=== PATIENT | male | born 1965 | race Caucasian/White ===

== ENCOUNTER 2020-06-11 11:43 | Inpatient (IN) | payer BC ==
[2020-06-11 13:47] VITALS: BMI 24.5
[2020-06-11] MEDS ORDERED: Dextrose 50% Abboject 50 ML SYRINGE SLOW IVP PRN (14:46)
[2020-06-11] MEDS ORDERED: Dextrose 5% in Water 1,000 ML IV PRN (14:46)
[2020-06-11 15:39] LABS: #Basophils 0.1 thou/uL (0.0-0.2); #Eosinphils 0.1 thou/uL (0.0-0.7); #Monocytes 0.9 thou/uL (0.11-0.59); #Neutrophils 4.2 thou/uL (1.40-6.50); %Basophils 0.7 % (0.0-1.0); %Eosinophils 1.1 % (0.0-10.0); %Monocytes 10.7 % (0.0-10.0); %Neutrophils 51.6 % (42.0-75.0); Hemoglobin 14.9 g/dL (14.0-18.0); Mean Corpuscular HGB CONC 32.8 g/dL (32.0-36.0); Mean Corpuscular Hemoglobin 31.3 pg (27.0-31.0); Mean Corpuscular Volume 95.5 fL (78.0-98.0); Mean Platelet Volume 7.1 fL (7.4-10.4); Platelet Count 337 thou/uL (130-400); RBC Distribution Width 11.6 % (11.5-14.5); Red Blood Cell (RBC) Count 4.77 mill/uL (4.70-6.10); White Blood Cell (WBC) Count 8.2 thou/uL (4.8-10.8)
[2020-06-11 16:01] LABS: ALT (SGPT) 9 U/L (8-55); AST (SGOT) 14 U/L (5-34); Alkaline Phosphatase 83 U/L (40-110); Anion Gap 15 mmol/L (10-20); BUN (Urea Nitrogen) 10 mg/dL (8.4-25.7); Bilirubin, Total 0.3 mg/dL (0.2-1.2); Calc. Creatinine Clearance 104 mL/min (70-130); Calcium 9.3 mg/dL (7.8-10.44); Carbon Dioxide 26 mmol/L (22-29); Chloride 101 mmol/L (98-107); Globulin 3.3 g/dL (2.4-3.5); Glucose 112 mg/dL (70-105); Potassium 4.1 mmol/L (3.5-5.1); Protein, Total 7.3 g/dL (6.0-8.3); Sodium 138 mmol/L (136-145)
[2020-06-11] MEDS ORDERED: hydrALAZINE 20 MG/ML VIAL SLOW IVP PRN (16:09)
[2020-06-11] MEDS: VANCOMYCIN 1.75 GM/350 ML BAG 1.75 GM in Premix Bag 1 BAG IVPB SCH (17:45)
[2020-06-11] MEDS ORDERED: Vancomycin 1 GM in Premix Bag 1 BAG IVPB SCH (21:00)
[2020-06-12 01:53] LABS: SARS-CoV-2 PCR by NAA Not Detected (NotDetected)
[2020-06-12] MEDS: VANCOMYCIN 1.75 GM/350 ML BAG 1.75 GM in Premix Bag 1 BAG IVPB SCH ×2 (05:18→17:23)
[2020-06-12 06:11] LABS: #Basophils 0.1 thou/uL (0.0-0.2); #Eosinphils 0.1 thou/uL (0.0-0.7); #Monocytes 0.8 thou/uL (0.11-0.59); #Neutrophils 3.5 thou/uL (1.40-6.50); %Eosinophils 1.6 % (0.0-10.0); %Lymphocytes 40.4 % (21.0-51.0); %Monocytes 10.3 % (0.0-10.0); %Neutrophils 46.7 % (42.0-75.0); Hemoglobin 14.8 g/dL (14.0-18.0); Mean Corpuscular HGB CONC 31.9 g/dL (32.0-36.0); Mean Corpuscular Hemoglobin 30.4 pg (27.0-31.0); Mean Corpuscular Volume 95.2 fL (78.0-98.0); Mean Platelet Volume 6.9 fL (7.4-10.4); Platelet Count 309 thou/uL (130-400); RBC Distribution Width 11.4 % (11.5-14.5); Red Blood Cell (RBC) Count 4.86 mill/uL (4.70-6.10); White Blood Cell (WBC) Count 7.4 thou/uL (4.8-10.8)
[2020-06-12 06:29] LABS: Anion Gap 14 mmol/L (10-20); BUN (Urea Nitrogen) 10 mg/dL (8.4-25.7); Calc. Creatinine Clearance 132 mL/min (70-130); Carbon Dioxide 24 mmol/L (22-29); Chloride 101 mmol/L (98-107); Glucose 114 mg/dL (70-105); Potassium 3.9 mmol/L (3.5-5.1); Sodium 135 mmol/L (136-145)
[2020-06-12] MEDS: Cefepime 2 GM in Sodium Chloride 0.9% 100 ML IVPB SCH ×2 (08:12→20:40)
[2020-06-12] MEDS: HumaLOG 300 UNITS/3 ML VIAL SC PRN (17:23)
[2020-06-13 05:07] LABS: #Basophils 0.1 thou/uL (0.0-0.2); #Eosinphils 0.2 thou/uL (0.0-0.7); #Lymphocytes 3.1 thou/uL (1.20-3.40); #Monocytes 0.8 thou/uL (0.11-0.59); #Neutrophils 4.4 thou/uL (1.40-6.50); %Basophils 1.3 % (0.0-1.0); %Eosinophils 1.9 % (0.0-10.0); %Lymphocytes 36.1 % (21.0-51.0); %Monocytes 9.2 % (0.0-10.0); %Neutrophils 51.4 % (42.0-75.0); Hemoglobin 15.2 g/dL (14.0-18.0); Mean Corpuscular HGB CONC 31.3 g/dL (32.0-36.0); Mean Corpuscular Hemoglobin 29.7 pg (27.0-31.0); Mean Platelet Volume 6.9 fL (7.4-10.4); Platelet Count 360 thou/uL (130-400); RBC Distribution Width 11.5 % (11.5-14.5); Red Blood Cell (RBC) Count 5.11 mill/uL (4.70-6.10); White Blood Cell (WBC) Count 8.6 thou/uL (4.8-10.8)
[2020-06-13 05:28] LABS: Vancomycin, Trough 15.3 ug/mL
[2020-06-13 05:30] LABS: Anion Gap 14 mmol/L (10-20); BUN (Urea Nitrogen) 13 mg/dL (8.4-25.7); Calc. Creatinine Clearance 108 mL/min (70-130); Calcium 9.1 mg/dL (7.8-10.44); Carbon Dioxide 28 mmol/L (22-29); Chloride 99 mmol/L (98-107); Glucose 161 mg/dL (70-105); Sodium 137 mmol/L (136-145)
[2020-06-13] MEDS: VANCOMYCIN 1.75 GM/350 ML BAG 1.75 GM in Premix Bag 1 BAG IVPB SCH ×2 (05:53→17:31)
[2020-06-13] MEDS: Cefepime 2 GM in Sodium Chloride 0.9% 100 ML IVPB SCH ×2 (08:49→21:47)
[2020-06-13] MEDS: HumaLOG 300 UNITS/3 ML VIAL SC PRN ×3 (11:32→21:48)
[2020-06-14 06:06] LABS: #Basophils 0.1 thou/uL (0.0-0.2); #Eosinphils 0.2 thou/uL (0.0-0.7); #Monocytes 0.7 thou/uL (0.11-0.59); #Neutrophils 3.5 thou/uL (1.40-6.50); %Basophils 1.4 % (0.0-1.0); %Eosinophils 3.3 % (0.0-10.0); %Lymphocytes 39.8 % (21.0-51.0); %Monocytes 9.3 % (0.0-10.0); %Neutrophils 46.3 % (42.0-75.0); Hemoglobin 14.7 g/dL (14.0-18.0); Mean Corpuscular HGB CONC 31.1 g/dL (32.0-36.0); Mean Corpuscular Hemoglobin 29.6 pg (27.0-31.0); Platelet Count 337 thou/uL (130-400); RBC Distribution Width 11.5 % (11.5-14.5); Red Blood Cell (RBC) Count 4.97 mill/uL (4.70-6.10); White Blood Cell (WBC) Count 7.6 thou/uL (4.8-10.8)
[2020-06-14] MEDS: HumaLOG 300 UNITS/3 ML VIAL SC PRN (06:14)
[2020-06-14] MEDS: VANCOMYCIN 1.75 GM/350 ML BAG 1.75 GM in Premix Bag 1 BAG IVPB SCH ×2 (06:14→17:14)
[2020-06-14 06:35] LABS: Anion Gap 13 mmol/L (10-20); BUN (Urea Nitrogen) 11 mg/dL (8.4-25.7); Calc. Creatinine Clearance 142 mL/min (70-130); Calcium 8.9 mg/dL (7.8-10.44); Carbon Dioxide 25 mmol/L (22-29); Chloride 101 mmol/L (98-107); Glucose 172 mg/dL (70-105); Potassium 3.8 mmol/L (3.5-5.1); Sodium 135 mmol/L (136-145)
[2020-06-14] MEDS: Cefepime 2 GM in Sodium Chloride 0.9% 100 ML IVPB SCH ×2 (08:50→21:32)
[2020-06-14] MEDS: metFORMIN 850 MG TAB PO SCH (08:50)
[2020-06-15 05:56] LABS: Vancomycin, Trough 13.3 ug/mL
[2020-06-15] MEDS: VANCOMYCIN 1.75 GM/350 ML BAG 1.75 GM in Premix Bag 1 BAG IVPB SCH (06:26)
[2020-06-15] MEDS ORDERED: VANCOMYCIN 1.25 GM/250 ML BAG 1.25 GM in Premix Bag 1 BAG IVPB SCH ×2 (06:45→14:00)
[2020-06-15] MEDS ORDERED: Midazolam HCl 2 mg/2 ml Vial ONE (08:21)
[2020-06-15] MEDS ORDERED: Fentanyl 100 MCG/2 ML VIAL ONE ×2 (08:21→09:18)
[2020-06-15] MEDS ORDERED: Lidocaine 1% PF 5 ML VIAL ONE (09:21)
[2020-06-15] MEDS ORDERED: PROPOFOL 200 MG/20 ML VIAL ONE (09:22)
[2020-06-15] MEDS ORDERED: Ondansetron HCl/PF 4 MG/2 ML Vial IVP PRN (09:41)
[2020-06-15] MEDS ORDERED: Promethazine HCl 25 MG/ML VIAL SLOW IVP PRN (09:41)
[2020-06-15] MEDS ORDERED: Promethazine HCl 25 MG/ML VIAL IM PRN (09:41)
[2020-06-15] MEDS ORDERED: EPINEPHrine 1 MG/ML AMP ONE (09:43)
[2020-06-15] MEDS ORDERED: Bupivacaine PF 0.5% 30 ML VIAL ONE (09:43)
[2020-06-15] MEDS ORDERED: Acetaminophen 500 MG TAB PO PRN (10:05)
[2020-06-15] MEDS ORDERED: traMADol HCl 50 MG TAB PO PRN (10:05)
[2020-06-15] MEDS: metFORMIN 850 MG TAB PO SCH (10:38)
[2020-06-15] MEDS: Saccharomyces boulardii 250 MG CAP PO SCH (10:38)
[2020-06-15] MEDS: Cefepime 2 GM in Sodium Chloride 0.9% 100 ML IVPB SCH (10:39)
[2020-06-15] MEDS ORDERED: Ciprofloxacin 500 MG TAB PO SCH (20:00)
[2020-06-15] MEDS: Amoxicillin/Potassium Clav 500 MG TAB PO SCH (21:32)
[2020-06-15] MEDS: Sulfameth/Trimethoprim DS 800-160mg TAB PO SCH (21:32)
[2020-06-15] MEDS: HumaLOG 300 UNITS/3 ML VIAL SC PRN (21:39)
[2020-06-16 07:46] VITALS: BP 134/91; TEMP 97.3
[2020-06-16] MEDS: Saccharomyces boulardii 250 MG CAP PO SCH (08:28)
[2020-06-16] MEDS: Sulfameth/Trimethoprim DS 800-160mg TAB PO SCH (08:28)
[2020-06-16] MEDS: metFORMIN 850 MG TAB PO SCH (08:29)
[2020-06-16] MEDS: Amoxicillin/Potassium Clav 500 MG TAB PO SCH (08:29)
== END 2020-06-16 11:23 | disposition home or self-care (01) | DRG 616 ==
LOC: T4-A 11:47
PROVIDERS: ADMIT Internal Medicine; ATTEND Internal Medicine
PROC: 0Y6T0Z1 Detachment at Right 3rd Toe, High, Open Approach (ICD-10-PCS; principal; 2020-06-15)
DX: E11.69 Type 2 diabetes mellitus with other specified complication (principal); E43 Unspecified severe protein-calorie malnutrition; E87.1 Hypo-osmolality and hyponatremia; M86.8X7 Other osteomyelitis, ankle and foot; L03.115 Cellulitis of right lower limb; Z20.822 Contact with and (suspected) exposure to COVID-19; Z66 Do not resuscitate; I10 Essential (primary) hypertension; R62.7 Adult failure to thrive; E11.621 Type 2 diabetes mellitus with foot ulcer; L97.519 Non-pressure chronic ulcer of other part of right foot with unspecified severity; M10.9 Gout, unspecified; E11.40 Type 2 diabetes mellitus with diabetic neuropathy, unspecified; E11.51 Type 2 diabetes mellitus with diabetic peripheral angiopathy without gangrene; I70.201 Unspecified atherosclerosis of native arteries of extremities, right leg; Z68.24 Body mass index [BMI] 24.0-24.9, adult; Z88.1 Allergy status to other antibiotic agents; Z79.899 Other long term (current) drug therapy; Z79.84 Long term (current) use of oral hypoglycemic drugs; Z87.891 Personal history of nicotine dependence; Z82.49 Family history of ischemic heart disease and other diseases of the circulatory system
CPT/HCPCS: 36415; 36416; 80048; 80053; 80202; 85025; 85652; 86140; 87040; 87635; 88305; 88311; 93923; J0171; J0692; J1815; J2250; J2704; J3010; J3370; J3490; S0020; U0003; U0005

== ENCOUNTER 2024-01-29 12:23 | Emergency (ER) | payer BC ==
[2024-01-29 13:16] LABS: #Basophils 0.05 10x3/uL (0.0-0.2); #Eosinophils Less than 0.03 10x3/uL (0.0-0.7); %Basophils 0.3 % (0.0-1.0); %Lymphocytes 6.8 % (21.0-51.0); %Monocytes 8.5 % (0.0-10.0); %Neutrophils 83.9 % (42.0-75.0); Hemoglobin 17.5 g/dL (14.0-18.0); Mean Corpuscular HGB CONC 33.7 g/dL (32.0-36.0); Mean Corpuscular Hemoglobin 30.5 pg (27.0-31.0); Mean Corpuscular Volume 90.8 fL (78.0-98.0); Mean Platelet Volume 8.8 fL (7.4-10.4); Platelet Count 342 10x3/uL (130-400); RBC Distribution Width 13.1 % (11.5-14.5); Red Blood Cell (RBC) Count 5.73 mill/uL (4.70-6.10)
[2024-01-29 13:51] LABS: ALT (SGPT) 29 U/L (8-55); AST (SGOT) 24 U/L (5-34); Albumin 3.4 g/dL (3.5-5.0); Alkaline Phosphatase 84 U/L (40-110); Anion Gap 23 mmol/L (10-20); BUN (Urea Nitrogen) 10 mg/dL (8.4-25.7); Bilirubin, Total 0.6 mg/dL (0.2-1.2); Calc. Creatinine Clearance 0 mL/min (70-130); Calcium 9.4 mg/dL (7.8-10.44); Carbon Dioxide 12 mmol/L (22-29); Chloride 99 mmol/L (98-107); Estimated GFR 82; Glucose 143 mg/dL (70-105); Potassium 4.3 mmol/L (3.5-5.1); Protein, Total 8.4 g/dL (6.0-8.3); Sodium 130 mmol/L (136-145)
[2024-01-29] MEDS ORDERED: Dexamethasone 10 MG/ML VIAL ONE ×2 (14:46→15:04)
[2024-01-29] MEDS ORDERED: Ketorolac Tromethamine 30 MG (1 mL) VIAL ONE (14:46)
[2024-01-29] MEDS ORDERED: Morphine 4 MG/ML VIAL ONE ×2 (14:46→15:03)
== END 2024-01-29 16:41 | disposition home or self-care (01) ==
LOC: ERS 12:23
DX: M54.2 Cervicalgia (principal); M47.9 Spondylosis, unspecified; E78.00 Pure hypercholesterolemia, unspecified; E11.9 Type 2 diabetes mellitus without complications; I10 Essential (primary) hypertension; Z79.82 Long term (current) use of aspirin; Z79.84 Long term (current) use of oral hypoglycemic drugs; Z79.899 Other long term (current) drug therapy
CPT/HCPCS: 80053; 83605; 85025; 87040; 87077; 87149; 96374; 96375; J1100; J1885; J2272

== ENCOUNTER 2024-02-01 08:57 | Inpatient (IN) | payer BC ==
[2024-02-01] MEDS ORDERED: Iopamidol-370 76% 500 ML MDV (1 ML CHARGE) ONE (09:43)
[2024-02-01] MEDS ORDERED: Morphine 4 MG/ML VIAL ONE (10:01)
[2024-02-01] MEDS ORDERED: Metoclopramide HCl 10 MG (2 mL) VIAL ONE (10:01)
[2024-02-01] MEDS ORDERED: methylPREDNISolone Sod Succ/PF 125 MG/2 ML VIAL ONE (10:02)
[2024-02-01 10:21] LABS: #Basophils 0.07 10x3/uL (0.0-0.2); #Eosinophils Less than 0.03 10x3/uL (0.0-0.7); %Basophils 0.4 % (0.0-1.0); %Eosinophils 0.1 % (0.0-10.0); %Monocytes 10.3 % (0.0-10.0); %Neutrophils 80.5 % (42.0-75.0); Hematocrit 48.4 % (42.0-52.0); Hemoglobin 16.9 g/dL (14.0-18.0); Mean Corpuscular HGB CONC 34.9 g/dL (32.0-36.0); Mean Corpuscular Hemoglobin 30.2 pg (27.0-31.0); Mean Corpuscular Volume 86.4 fL (78.0-98.0); Mean Platelet Volume 8.8 fL (7.4-10.4); Platelet Count 494 10x3/uL (130-400)
[2024-02-01 10:33] LABS: ALT (SGPT) 21 U/L (8-55); AST (SGOT) 20 U/L (5-34); Albumin 3.3 g/dL (3.5-5.0); Alkaline Phosphatase 79 U/L (40-110); Anion Gap 24 mmol/L (10-20); BUN (Urea Nitrogen) 14 mg/dL (8.4-25.7); Bilirubin, Total 1.6 mg/dL (0.2-1.2); Calc. Creatinine Clearance 0 mL/min (70-130); Calcium 9.5 mg/dL (7.8-10.44); Carbon Dioxide 22 mmol/L (22-29); Chloride 95 mmol/L (98-107); Estimated GFR 101; Globulin 4.8 g/dL (2.4-3.5); Glucose 179 mg/dL (70-105); Potassium 3.8 mmol/L (3.5-5.1); Protein, Total 8.1 g/dL (6.0-8.3); Sodium 137 mmol/L (136-145)
[2024-02-01] MEDS ORDERED: cefTRIAXone (ROCEPHIN) 2 GM VIAL ONE (10:49)
[2024-02-01] MEDS ORDERED: Sodium Chloride 0.9% 100 ML ONE ×2 (10:49→14:08)
[2024-02-01 13:35] LABS: CSF, Glucose 95 mg/dl (40-70); CSF, Protein 25.1 mg/dL (15-40)
[2024-02-01 13:47] LABS: Lactic Acid 1.07 mmol/L (0.5-2.2)
[2024-02-01 13:59] LABS: Color Of CSF Supernatant COLORLESS (Colorless); Tube # 2; Unspun CSF Color COLORLESS (Colorless)
[2024-02-01 14:07] LABS: CSF Source CSF; Clarity Clear (Clear); Tube # 1; Tube # 4
[2024-02-01] MEDS ORDERED: Vancomycin (BATCH) 2 GM/500 ML BAG ONE (14:07)
[2024-02-01] MEDS ORDERED: Piperacillin/Tazobactam 4.5 GM VIAL ONE (14:08)
[2024-02-01] MEDS ORDERED: Glucagon 1 MG/ML KIT IM PRN (14:50)
[2024-02-01] MEDS ORDERED: Dextrose 50% Abboject 50 ML SYRINGE SLOW IVP PRN (14:50)
[2024-02-01] MEDS ORDERED: Dextrose 5% in Water 1,000 ML IV PRN (14:50)
[2024-02-01] MEDS ORDERED: Ondansetron PF 4 MG/2 ML Vial IVP PRN (14:52)
[2024-02-01 18:43] VITALS: BMI 22.8
[2024-02-01] MEDS: Acetaminophen 325 MG TAB PO PRN (20:27)
[2024-02-01] MEDS: Cefepime 1 GM in Sodium Chloride 0.9% 100 ML IVPB SCH (20:30)
[2024-02-01] MEDS ORDERED: Vancomycin 1 GM in Premix 1 BAG IVPB SCH (21:00)
[2024-02-01] MEDS: metroNIDAZOLE 500 MG in Premix 1 BAG IVPB SCH (22:54)
[2024-02-02] MEDS: Vancomycin (BATCH) 1.5 GM in Premix 1 BAG IVPB SCH (01:00)
[2024-02-02] MEDS: Insulin Lispro 100 UNIT/ML 10 ML VIAL SC PRN (01:07)
[2024-02-02 03:59] LABS: #Basophils 0.08 10x3/uL (0.0-0.2); #Eosinophils Less than 0.03 10x3/uL (0.0-0.7); %Basophils 0.3 % (0.0-1.0); %Lymphocytes 8.6 % (21.0-51.0); %Monocytes 9.8 % (0.0-10.0); Hematocrit 44.5 % (42.0-52.0); Hemoglobin 15.3 g/dL (14.0-18.0); Mean Corpuscular HGB CONC 34.4 g/dL (32.0-36.0); Mean Corpuscular Hemoglobin 30.2 pg (27.0-31.0); Mean Corpuscular Volume 87.9 fL (78.0-98.0); Mean Platelet Volume 8.9 fL (7.4-10.4); Platelet Count 465 10x3/uL (130-400); RBC Distribution Width 13.3 % (11.5-14.5); Red Blood Cell (RBC) Count 5.06 mill/uL (4.70-6.10)
[2024-02-02 04:15] LABS: Vancomycin, Random 30.5 ug/mL (See Comment)
[2024-02-02 04:26] LABS: Anion Gap 15 mmol/L (10-20); BUN (Urea Nitrogen) 18 mg/dL (8.4-25.7); Calc. Creatinine Clearance 127 mL/min (70-130); Calcium 8.9 mg/dL (7.8-10.44); Carbon Dioxide 23 mmol/L (22-29); Chloride 102 mmol/L (98-107); Estimated GFR 105; Glucose 173 mg/dL (70-105); Potassium 4.1 mmol/L (3.5-5.1); Sodium 136 mmol/L (136-145)
[2024-02-02] MEDS: CEFAZOLIN 2 GM in Sodium Chloride 0.9% 100 ML IVPB SCH (08:22)
[2024-02-02] MEDS: Enoxaparin 40 MG (0.4 mL) SYRINGE SC SCH (08:32)
[2024-02-02] MEDS: HYDROcodone/Acetaminophen 7.5/325 mg Tablet PO PRN (12:45)
[2024-02-02] MEDS: Fioricet 325/50/40 mg Tablet PO PRN (15:08)
[2024-02-03] MEDS ORDERED: Ketorolac Tromethamine 30 MG (1 mL) VIAL ONE (09:20)
[2024-02-03] MEDS ORDERED: PROPOFOL 20 ML ONE (09:56)
[2024-02-03] MEDS ORDERED: Lidocaine 1% PF 5 ML VIAL ONE (09:56)
[2024-02-03] MEDS ORDERED: fentaNYL PF 100 MCG/2 ML SYRINGE ONE (10:02)
[2024-02-03] MEDS ORDERED: Bupivacaine PF 0.5% 30 ML VIAL ONE (10:11)
[2024-02-03] MEDS ORDERED: Ondansetron PF 4 MG/2 ML Vial ONE (10:13)
[2024-02-03 15:05] VITALS: BMI 22.8
[2024-02-03] MEDS: SUMAtriptan Succinate 6 MG/0.5 ML VIAL SC PRN (18:44)
[2024-02-03] MEDS: Acetaminophen 500 MG TAB PO PRN (22:56)
[2024-02-04 05:41] LABS: #Basophils 0.07 10x3/uL (0.0-0.2); %Basophils 0.4 % (0.0-1.0); %Eosinophils 0.4 % (0.0-10.0); %Lymphocytes 15.7 % (21.0-51.0); %Monocytes 9.8 % (0.0-10.0); %Neutrophils 72.6 % (42.0-75.0); Hematocrit 42.4 % (42.0-52.0); Hemoglobin 14.7 g/dL (14.0-18.0); Mean Corpuscular HGB CONC 34.7 g/dL (32.0-36.0); Mean Corpuscular Hemoglobin 29.9 pg (27.0-31.0); Mean Corpuscular Volume 86.4 fL (78.0-98.0); Mean Platelet Volume 8.9 fL (7.4-10.4); Platelet Count 492 10x3/uL (130-400); RBC Distribution Width 13.2 % (11.5-14.5); Red Blood Cell (RBC) Count 4.91 mill/uL (4.70-6.10)
[2024-02-04] MEDS: Sodium Chloride 0.9% 100 ML ONE (08:31)
[2024-02-04] MEDS: Colchicine 0.6 MG TAB PO SCH ×2 (14:49→20:39)
[2024-02-05 05:58] LABS: #Basophils 0.06 10x3/uL (0.0-0.2); %Basophils 0.4 % (0.0-1.0); %Eosinophils 0.5 % (0.0-10.0); %Lymphocytes 18.8 % (21.0-51.0); %Monocytes 11.9 % (0.0-10.0); Hematocrit 42.1 % (42.0-52.0); Hemoglobin 14.7 g/dL (14.0-18.0); Mean Corpuscular HGB CONC 34.9 g/dL (32.0-36.0); Mean Corpuscular Hemoglobin 30.2 pg (27.0-31.0); Mean Corpuscular Volume 86.4 fL (78.0-98.0); Platelet Count 510 10x3/uL (130-400); RBC Distribution Width 13.2 % (11.5-14.5); Red Blood Cell (RBC) Count 4.87 mill/uL (4.70-6.10)
[2024-02-06 05:49] LABS: #Basophils 0.04 10x3/uL (0.0-0.2); %Basophils 0.2 % (0.0-1.0); %Eosinophils 0.2 % (0.0-10.0); %Lymphocytes 14.2 % (21.0-51.0); %Monocytes 9.7 % (0.0-10.0); %Neutrophils 74.6 % (42.0-75.0); Hematocrit 42.1 % (42.0-52.0); Hemoglobin 14.6 g/dL (14.0-18.0); Mean Corpuscular HGB CONC 34.7 g/dL (32.0-36.0); Mean Corpuscular Hemoglobin 30.2 pg (27.0-31.0); Mean Corpuscular Volume 87.2 fL (78.0-98.0); Platelet Count 490 10x3/uL (130-400); Red Blood Cell (RBC) Count 4.83 mill/uL (4.70-6.10)
[2024-02-06] MEDS: Pantoprazole DR 40 MG TAB PO SCH (12:45)
[2024-02-06] MEDS: metFORMIN 850 MG TAB PO SCH (20:24)
[2024-02-07 04:56] LABS: #Basophils 0.06 10x3/uL (0.0-0.2); %Basophils 0.5 % (0.0-1.0); %Eosinophils 0.8 % (0.0-10.0); %Lymphocytes 18.7 % (21.0-51.0); %Monocytes 12.7 % (0.0-10.0); %Neutrophils 66.5 % (42.0-75.0); Hematocrit 42.1 % (42.0-52.0); Hemoglobin 14.3 g/dL (14.0-18.0); Mean Corpuscular Volume 88.3 fL (78.0-98.0); Platelet Count 497 10x3/uL (130-400); RBC Distribution Width 13.2 % (11.5-14.5); Red Blood Cell (RBC) Count 4.77 mill/uL (4.70-6.10)
[2024-02-07] MEDS ORDERED: Sodium Bicarbonate 2.5 MEQ/5 ML SDV ONE (08:26)
[2024-02-07] MEDS ORDERED: Lidocaine 1% PF 5 ML VIAL ONE (08:26)
[2024-02-07] MEDS ORDERED: Pantoprazole DR 40 MG TAB PO SCH (09:00)
[2024-02-07] MEDS: Pantoprazole DR 40 MG TAB PO SCH (09:52)
[2024-02-07] MEDS: Empagliflozin 25 MG TAB PO SCH (09:52)
[2024-02-07] MEDS: Aspirin Chewable 81 MG TAB PO SCH (09:52)
[2024-02-07] MEDS: Atorvastatin Calcium 10 MG TAB PO SCH (09:52)
[2024-02-07] MEDS: glipiZIDE 5 MG TAB PO SCH (09:52)
[2024-02-07] MEDS ORDERED: Docusate 100 MG CAP PO PRN (13:40)
[2024-02-07] MEDS ORDERED: Polyethylene Glycol 3350 17 GM Packet PO PRN (13:40)
[2024-02-07] MEDS: diphenhydrAMINE 50 MG/ML VIAL IVP SCH (15:48)
[2024-02-08 07:04] LABS: #Basophils 0.08 10x3/uL (0.0-0.2); %Basophils 0.5 % (0.0-1.0); %Eosinophils 0.4 % (0.0-10.0); %Lymphocytes 14.4 % (21.0-51.0); %Monocytes 10.8 % (0.0-10.0); %Neutrophils 73.1 % (42.0-75.0); Hematocrit 41.3 % (42.0-52.0); Hemoglobin 14.2 g/dL (14.0-18.0); Mean Corpuscular HGB CONC 34.4 g/dL (32.0-36.0); Mean Corpuscular Hemoglobin 30.5 pg (27.0-31.0); Mean Corpuscular Volume 88.8 fL (78.0-98.0); Mean Platelet Volume 8.6 fL (7.4-10.4); Platelet Count 541 10x3/uL (130-400); RBC Distribution Width 13.2 % (11.5-14.5); Red Blood Cell (RBC) Count 4.65 mill/uL (4.70-6.10)
[2024-02-08 07:28] LABS: Anion Gap 16 mmol/L (10-20); BUN (Urea Nitrogen) 12 mg/dL (8.4-25.7); Calc. Creatinine Clearance 155 mL/min (70-130); Calcium 8.9 mg/dL (7.8-10.44); Carbon Dioxide 23 mmol/L (22-29); Chloride 101 mmol/L (98-107); Estimated GFR 111; Glucose 126 mg/dL (70-105); Potassium 3.8 mmol/L (3.5-5.1); Sodium 136 mmol/L (136-145)
[2024-02-08] MEDS: Ketorolac Tromethamine 30 MG (1 mL) VIAL IVP SCH (10:30)
[2024-02-08] MEDS: diphenhydrAMINE 50 MG/ML VIAL IVP SCH (11:19)
[2024-02-08] MEDS: Prochlorperazine Edisylate 10 MG in Sodium Chloride 0.9% 50 ML IVPB SCH (11:19)
[2024-02-08] MEDS: Insulin Lispro 100 UNIT/ML 10 ML VIAL SC PRN (23:27)
[2024-02-09 17:44] VITALS: BP 152/83; TEMP 98.2
== END 2024-02-09 18:47 | disposition home or self-care (01) | DRG 872 ==
LOC: ERS 08:57 → OBSVTOIN 14:20 → 2NO 14:20 → T4-B 02-02 14:06
PROVIDERS: ADMIT Internal Medicine; ATTEND Internal Medicine
PROC: 0J9Q0ZZ Drainage of Right Foot Subcutaneous Tissue and Fascia, Open Approach (ICD-10-PCS; principal; 2024-02-03)
PROC: 0HDMXZZ Extraction of Right Foot Skin, External Approach (ICD-10-PCS; 2024-02-03)
PROC: 02HV33Z Insertion of Infusion Device into Superior Vena Cava, Percutaneous Approach (ICD-10-PCS; 2024-02-07)
PROC: B518ZZA Fluoroscopy of Superior Vena Cava, Guidance (ICD-10-PCS; 2024-02-07)
PROC: 3E03329 Introduction of Other Anti-infective into Peripheral Vein, Percutaneous Approach (ICD-10-PCS; 2024-02-09)
DX: A41.01 Sepsis due to Methicillin susceptible Staphylococcus aureus (principal); L03.115 Cellulitis of right lower limb; M86.8X6 Other osteomyelitis, lower leg; I10 Essential (primary) hypertension; Z86.73 Personal history of transient ischemic attack (TIA), and cerebral infarction without residual deficits; E78.00 Pure hypercholesterolemia, unspecified; R59.0 Localized enlarged lymph nodes; E11.69 Type 2 diabetes mellitus with other specified complication; M10.9 Gout, unspecified; G43.909 Migraine, unspecified, not intractable, without status migrainosus
CPT/HCPCS: 36415; 36416; 36573; 62270; 70450; 70487; 70551; 80048; 80053; 80202; 82945; 83605; 84157; 85025; 86141; 87040; 87070; 87077; 87149; 87186; 87205; 89051; 93306; 96365; 96366; 96367; 96374; 96375; 97139; C1751; J0665; J0692; J0696; J0780; J1100; J1200; J1650; J1815; J1885; J2272; J2405; J2543; J2704; J2765; J2919; J3030; J3370; Q9967